=== PATIENT | female | born 1995 | race African-American/Black ===

== ENCOUNTER 2021-06-10 05:02 | Emergency (ER) | payer OTHER ==
--- NOTE | 2021-06-10 08:14 | REP ---
INDICATION: vaginal bleeding started this am COMPARISON: None. TECHNIQUE: Transabdominal 1st trimester obstetrical ultrasound with color Doppler evaluation. FINDINGS: Single live early intrauterine is appreciated. Gestational sac with pole identified. [place]-rump length of 61 mm corresponds to 12 weeks 4 days gestational age with estimated date of delivery 12/19/2021. heart rate equals 150 beats per minute. No gross abnormalities are identified. IMPRESSION: Single live early intrauterine at 12 weeks 4 days gestational age. Complete anatomical assessment should be performed and 19-20 weeks. <Electronically signed by Siddharth Acevedo > 06/10/21 [id number]
[2021-06-10 08:16] LABS: BASO % 0.3 % (0.0-1.0); EOS % 0.3 % (0.0-3.0); HEMATOCRIT 37.4 % (36.0-47.0); HEMOGLOBIN 12.5 g/dl (12.0-15.5); LYMPH # 1.6 10^3/uL (1.5-5.0); LYMPH % 23.9 % (24.0-44.0); MEAN CORPUSCULAR HEMOGLOBIN 29.2 pg (27.0-33.0); MEAN CORPUSCULAR HGB CONC 33.4 g/dl (32.0-36.5); MEAN CORPUSCULAR VOLUME 87.4 fl (80.0-96.0); MONO # 0.4 10^3/uL (0.0-0.8); MONO % 5.8 % (2.0-8.0); NEUTROPHILS # 4.7 10^3/uL (1.5-8.5); NEUTROPHILS % 69.3 % (36.0-66.0); PLATELET COUNT, AUTOMATED 288 10^3/uL (150-450); RED BLOOD COUNT 4.28 10^6/uL (4.00-5.40); WHITE BLOOD COUNT 6.8 10^3/uL (4.0-10.0)
[2021-06-10] MEDS ORDERED: ACETAMINOPHEN 325 MG TAB PO ONE (08:20)
[2021-06-10 09:17] VITALS: BP 109/60
== END 2021-06-10 09:33 | disposition home or self-care (01) ==
LOC: M ED 05:02
DX: O20.8 Other hemorrhage in early pregnancy (principal); O26.891 Other specified pregnancy related conditions, first trimester; Z3A.12 12 weeks gestation of pregnancy

== ENCOUNTER 2021-11-19 16:08 | Outpatient (CLI) | payer OTHER ==
[2021-11-19 16:56] VITALS: BP 127/71
[2021-11-19 17:18] VITALS: BP 107/55
[2021-11-19] MEDS ORDERED: FLUCONAZOLE 50MG TABLET PO ONE (17:30)
[2021-11-19] MEDS ORDERED: PRENTAB9 PO (17:31)
[2021-11-19] MEDS ORDERED: FERR325T3 PO (17:32)
== END 2021-11-19 17:37 | disposition home or self-care (01) ==
LOC: M LDO 16:08
PROVIDERS: ATTEND Obstetrics & Gynecology
DX: O23.593 Infection of other part of genital tract in pregnancy, third trimester (principal); Z3A.35 35 weeks gestation of pregnancy
CPT/HCPCS: 59025; 76815; G0463

== ENCOUNTER 2021-12-29 14:05 | Inpatient (IN) | payer OTHER ==
[~2021-12-29] VITALS: Ht 167.6 cm; Wt 84.4 kg
[~2021-12-29 14:05] MED LIST: FERR325T3 PO; PRENTAB9 PO
[2021-12-29 14:10] VITALS: BP 138/82
[2021-12-29] MEDS ORDERED: TRANEXAMIC ACID INJection 1,000 MG in NS 100 ML IV PRN (14:15)
[2021-12-29] MEDS ORDERED: OXYTOCIN INJ 10 UNITS/ML VIAL (J2590) IV PRN (14:15)
[2021-12-29] MEDS ORDERED: METHYLERGONOVINE MALEATE 0.2 MG/ML VIAL (J2210) IM PRN (14:15)
[2021-12-29] MEDS ORDERED: LACTATED RINGER'S 1000 ML IV ONE (14:15)
[2021-12-29] MEDS ORDERED: OXYTOCIN DRIP 30 UNITS in IV 1 EA IV PRN ×4 (14:15)
[2021-12-29] MEDS ORDERED: BICITRA 30ML SOLN UDC PO ONE (14:20)
[2021-12-29] MEDS ORDERED: ACETAMINOPHEN 650 MG SUPP PR ONE (14:20)
[2021-12-29] MEDS ORDERED: ceFAZolin SOD 2 GM in IV 1 EA IV ONE (14:20)
[2021-12-29] MEDS ORDERED: AZITHROMYCIN INJ 500 MG, VIAL MATE ADAPTER 1 EACH in NS 250 ML IV ONE (14:20)
[2021-12-29] MEDS ORDERED: BUPIVACAINE HCL 0.25% 10ML VIAL SC ONE (14:20)
[2021-12-29 15:41] LABS: HEMATOCRIT 34.7 % (36.0-47.0); HEMOGLOBIN 11.8 g/dl (12.0-15.5); MEAN CORPUSCULAR VOLUME 91.1 fl (80.0-96.0); PLATELET COUNT, AUTOMATED 200 10^3/uL (150-450); RED BLOOD COUNT 3.81 10^6/uL (4.00-5.40); WHITE BLOOD COUNT 9.2 10^3/uL (4.0-10.0)
[2021-12-29] MEDS: LR 1,000 ML IV SCH ×2 (15:59→22:15)
[2021-12-29] MEDS ORDERED: MORPHINE PRES-FREE INJ 10 MG/10 ML VIAL As Ordered ONE (19:27)
[2021-12-29] MEDS ORDERED: METOCLOPRAMIDE INJ 10MG/2ML VIAL (J2765 PER 1) As Ordered ONE (19:28)
[2021-12-29] MEDS ORDERED: KETOROLAC 60MG 2ML VIAL As Ordered ONE (19:28)
[2021-12-29] MEDS ORDERED: ONDANSETRON 4MG/2ML VIAL As Ordered ONE (19:28)
[2021-12-29] MEDS ORDERED: dexameTHASONE 4 MG/ML 1ML VIAL (J1100 PER 1MG) As Ordered ONE (19:28)
[2021-12-29] MEDS ORDERED: OXYTOCIN INJ 10 UNITS/ML VIAL (J2590) As Ordered ONE (19:31)
[2021-12-29] MEDS ORDERED: OXYTOCIN 30 UNITS IN 0.9% NaCl 500ML IV BAG (J2590) As Ordered ONE ×2 (19:35→21:34)
[2021-12-29] MEDS ORDERED: ACETAMINOPHEN 1000MG 100ML IV BTL (OFIRMEV) (J0131 PER 10MG) As Ordered ONE (19:37)
[2021-12-29] MEDS ORDERED: PHENYLephrine 500MCG 5ML (100MCG/ML) SYRINGE As Ordered ONE (20:17)
[2021-12-29] MEDS ORDERED: ePHEDrine SULFATE 25 MG/5 ML(5MG/ML) SYRINGE As Ordered ONE (20:17)
[2021-12-29] MEDS ORDERED: fentaNYL 100 MCG/2 ML INJECTION As Ordered ONE (20:23)
[2021-12-29 20:29] LABS: CORD GAS ABE A -0.6; CORD GAS ABE V -0.5; CORD GAS HCO3 A 25.9 MEQ/L; CORD GAS HCO3 V 23.6 MEQ/L; CORD GAS O2 SAT A 38.4 %; CORD GAS PCO2 A 49.5 mmHg; CORD GAS PCO2 V 37.4 mmHg; CORD GAS PH A 7.336 UNITS; CORD GAS PH V 7.418 UNITS; CORD GAS PO2 A 18.5 mmHg; CORD GAS PO2 V 23.1 mmHg; CORD GAS SBC A 22.6 MEQ/L; CORD GAS TCO2 A 27.4 MEQ/L; CORD GAS TCO2 V 24.8 MEQ/L
[2021-12-29] MEDS ORDERED: MEPERIDINE 50 MG/ML 1ML VIAL (J2175) As Ordered ONE (20:34)
[2021-12-29] MEDS ORDERED: OXYTOCIN DRIP 30 UNITS in IV 1 EA IV ONE (21:30)
[2021-12-29] MEDS ORDERED: MOM 30ML SUSPENSION UDC PO PRN (21:30)
[2021-12-29] MEDS ORDERED: LR 1,000 ML IV SCH (21:30)
[2021-12-29] MEDS ORDERED: OXYTOCIN INJ 10 UNITS/ML VIAL (J2590) IV ONE (21:30)
[2021-12-29] MEDS ORDERED: ANUSOL HC CREAM 30GM TOP PRN (21:30)
[2021-12-29] MEDS ORDERED: ACETAMINOPHEN TAB 650MG DOSE (2X325MG) PO PRN (21:30)
[2021-12-29] MEDS ORDERED: MEASLES,MUMPS,RUBELLA VACCINE INJ (MMR-II) (90707) SC SCH (21:30)
[2021-12-29] MEDS ORDERED: DOCUSATE SODIUM 100MG CAPSULE PO PRN (21:30)
[2021-12-29] MEDS ORDERED: SIMETHICONE 80MG CHEW TAB PO PRN (21:30)
[2021-12-29] MEDS ORDERED: RHOGAM 300 MCG (1500 IU) INJ (J2790) IM SCH (21:30)
[2021-12-29] MEDS ORDERED: PERCOCET 5MG/325MG TAB PO PRN ×2 (21:30)
[2021-12-29] MEDS ORDERED: METHYLERGONOVINE MALEATE 0.2 MG TAB PO PRN (21:30)
[2021-12-29] MEDS ORDERED: ACETAMINOPHEN 500 MG TAB PO PRN (21:30)
[2021-12-29 22:30] VITALS: BP 131/82
[2021-12-29 23:00] VITALS: BP 133/74
[2021-12-29 23:30] VITALS: BP 125/73
[2021-12-30] VITALS (7 sets, daily range): BP systolic 100–128; BP diastolic 55–79
[2021-12-30] MEDS: KETOROLAC 30 MG/ML 1ML VIAL IV SCH ×3 (02:05→14:23)
[2021-12-30] MEDS ORDERED: diphenhydrAMINE 50MG/ML VIAL (J1200) IV PRN (02:10)
[2021-12-30] MEDS: LR 1,000 ML IV SCH (05:58)
[2021-12-30 07:10] LABS: HEMATOCRIT 32.7 % (36.0-47.0); HEMOGLOBIN 10.9 g/dl (12.0-15.5); MEAN CORPUSCULAR HEMOGLOBIN 30.2 pg (27.0-33.0); MEAN CORPUSCULAR HGB CONC 33.3 g/dl (32.0-36.5); MEAN CORPUSCULAR VOLUME 90.6 fl (80.0-96.0); PLATELET COUNT, AUTOMATED 221 10^3/uL (150-450); RED BLOOD COUNT 3.61 10^6/uL (4.00-5.40)
[2021-12-30] MEDS: PRENATAL VITAMINS CHEWABLE TABLET PO SCH (08:27)
[2021-12-30] MEDS ORDERED: IBUPROFEN 800 MG TAB PO PRN (22:00)
[2021-12-30] MEDS ORDERED: IBUPROFEN 600MG TAB PO PRN (22:00)
[2021-12-31 02:00] VITALS: BP 106/67
[2021-12-31 06:00] VITALS: BP 121/71
[2021-12-31] MEDS ORDERED: IBUP80TA PO (08:13)
[2021-12-31] MEDS ORDERED: COLA100C5 PO (08:13)
[2021-12-31] MEDS ORDERED: ACET-683 PO (08:13)
[2021-12-31] MEDS ORDERED: PERCOCET PO (08:13)
[2021-12-31] MEDS: PRENATAL VITAMINS CHEWABLE TABLET PO SCH (09:06)
[2021-12-31 09:52] VITALS: BP 121/66
== END 2021-12-31 17:46 | disposition home or self-care (01) | DRG 773 ==
LOC: M LDI 14:05 → M OBS 22:36
PROVIDERS: ADMIT Obstetrics & Gynecology; ATTEND Obstetrics & Gynecology
PROC: 10D00Z1 Extraction of Products of Conception, Low, Open Approach (ICD-10-PCS; principal; 2021-12-29 18:00)
DX: O34.211 Maternal care for low transverse scar from previous cesarean delivery (principal); O48.0 Post-term pregnancy; Z3A.41 41 weeks gestation of pregnancy; O76 Abnormality in fetal heart rate and rhythm complicating labor and delivery; Z37.0 Single live birth; O69.81X0 Labor and delivery complicated by cord around neck, without compression, not applicable or unspecified; O40.3XX0 Polyhydramnios, third trimester, not applicable or unspecified

== ENCOUNTER 2022-03-16 18:50 | Emergency (ER) | payer OTHER ==
[~2022-03-16] VITALS: Ht 167.6 cm; Wt 79.1 kg
[~2022-03-16 18:50] MED LIST changes: +ACET-683 PO; +COLA100C5 PO; +IBUP80TA PO; +PERCOCET PO
[2022-03-16 21:08] LABS: BASO % 0.3 % (0.0-1.0); EOS # 0.1 10^3/uL (0.0-0.5); EOS % 1.4 % (0.0-3.0); HEMATOCRIT 42.2 % (36.0-47.0); HEMOGLOBIN 13.6 g/dl (12.0-15.5); LYMPH # 2.1 10^3/uL (1.5-5.0); LYMPH % 36.9 % (24.0-44.0); MEAN CORPUSCULAR HEMOGLOBIN 28.9 pg (27.0-33.0); MEAN CORPUSCULAR HGB CONC 32.2 g/dl (32.0-36.5); MEAN CORPUSCULAR VOLUME 89.6 fl (80.0-96.0); MONO # 0.4 10^3/uL (0.0-0.8); MONO % 7.3 % (2.0-8.0); NEUTROPHILS # 3.1 10^3/uL (1.5-8.5); NEUTROPHILS % 53.9 % (36.0-66.0); PLATELET COUNT, AUTOMATED 282 10^3/uL (150-450); RED BLOOD COUNT 4.71 10^6/uL (4.00-5.40); WHITE BLOOD COUNT 5.7 10^3/uL (4.0-10.0)
[2022-03-16 21:33] LABS: HCG, SERUM QUALITATIVE NEGATIVE (NEGATIVE)
[2022-03-16 21:40] LABS: ALT/SGPT 85 U/L (12-78); BILIRUBIN,DIRECT < 0.1 MG/DL (0.0-0.2); BILIRUBIN,TOTAL 0.4 MG/DL (0.2-1.0); BLOOD UREA NITROGEN 9 MG/DL (7-18); CALCIUM LEVEL 9.7 MG/DL (8.5-10.1); CARBON DIOXIDE LEVEL 26 MEQ/L (21-32); CHLORIDE LEVEL 108 MEQ/L (98-107); CREATININE FOR GFR 0.75 MG/DL (0.55-1.30); GLOMERULAR FILTRATION RATE > 60.0 (>60); GLUCOSE, FASTING 75 MG/DL (70-100); LIPASE 137 U/L (73-393); SODIUM LEVEL 141 MEQ/L (136-145); TOTAL PROTEIN 8.1 GM/DL (6.4-8.2)
[2022-03-16] MEDS ORDERED: KETOROLAC 30 MG/ML 1ML VIAL IV ONE (23:50)
[2022-03-16] MEDS ORDERED: NS 1,000 ML IV ONE (23:50)
[2022-03-17] MEDS ORDERED: PROT1TAB2 PO ×2 (02:18→02:20)
[2022-03-17 02:30] VITALS: BP 119/75
== END 2022-03-17 02:32 | disposition home or self-care (01) ==
LOC: M ED 18:50
DX: S10.15XA Superficial foreign body of throat, initial encounter (principal); Y92.511 Restaurant or cafe as the place of occurrence of the external cause
CPT/HCPCS: 74018; 80048; 80076; 81001; 83690; 84703; 85025; 93005; 96374; 99284; J1885

== ENCOUNTER 2022-07-12 19:34 | Emergency (ER) | payer OTHER ==
[~2022-07-12] VITALS: Ht 162.6 cm; Wt 77.7 kg
[~2022-07-12 19:34] MED LIST changes: +PROT1TAB2 PO
[2022-07-12] MEDS ORDERED: ACETAMINOPHEN 500 MG TAB PO ONE (21:30)
[2022-07-12 21:55] LABS: BASO % 0.3 % (0.0-1.0); EOS # 0.1 10^3/uL (0.0-0.5); EOS % 1.1 % (0.0-3.0); HEMATOCRIT 37.6 % (36.0-47.0); HEMOGLOBIN 12.3 g/dl (12.0-15.5); LYMPH # 2.8 10^3/uL (1.5-5.0); LYMPH % 43.1 % (24.0-44.0); MEAN CORPUSCULAR HEMOGLOBIN 28.7 pg (27.0-33.0); MEAN CORPUSCULAR HGB CONC 32.7 g/dl (32.0-36.5); MEAN CORPUSCULAR VOLUME 87.9 fl (80.0-96.0); MONO # 0.5 10^3/uL (0.0-0.8); MONO % 7.2 % (2.0-8.0); NEUTROPHILS # 3.2 10^3/uL (1.5-8.5); NEUTROPHILS % 48.1 % (36.0-66.0); PLATELET COUNT, AUTOMATED 267 10^3/uL (150-450); RED BLOOD COUNT 4.28 10^6/uL (4.00-5.40); WHITE BLOOD COUNT 6.6 10^3/uL (4.0-10.0)
[2022-07-12 22:29] LABS: ALBUMIN 3.8 GM/DL (3.2-5.2); ALT/SGPT 32 U/L (12-78); BILIRUBIN,DIRECT 0.1 MG/DL (0.0-0.2); BILIRUBIN,TOTAL 0.6 MG/DL (0.2-1.0); BLOOD UREA NITROGEN 12 MG/DL (7-18); CALCIUM LEVEL 9.3 MG/DL (8.5-10.1); CARBON DIOXIDE LEVEL 27 MEQ/L (21-32); CHLORIDE LEVEL 105 MEQ/L (98-107); CREATININE FOR GFR 0.82 MG/DL (0.55-1.30); GLOMERULAR FILTRATION RATE > 60.0 (>60); GLUCOSE, FASTING 89 MG/DL (70-100); LIPASE 168 U/L (73-393); POTASSIUM SERUM 4.2 MEQ/L (3.5-5.1); SODIUM LEVEL 136 MEQ/L (136-145); TOTAL PROTEIN 7.5 GM/DL (6.4-8.2)
[2022-07-13 00:19] VITALS: BP 124/67
== END 2022-07-13 00:28 | disposition home or self-care (01) ==
LOC: M ED 19:34
DX: O34.81 Maternal care for other abnormalities of pelvic organs, first trimester (principal); N83.292 Other ovarian cyst, left side; Z3A.01 Less than 8 weeks gestation of pregnancy; O34.219 Maternal care for unspecified type scar from previous cesarean delivery; Z79.899 Other long term (current) drug therapy; Z87.19 Personal history of other diseases of the digestive system

== ENCOUNTER → 2022-07-30 | Outpatient (CLI) | payer OTHER | LOC: M RAD 10:11 | PROVIDERS: ATTEND Registered Nurse | DX: O36.80X0 Pregnancy with inconclusive fetal viability, not applicable or unspecified (principal); N83.202 Unspecified ovarian cyst, left side; Z3A.01 Less than 8 weeks gestation of pregnancy; O34.81 Maternal care for other abnormalities of pelvic organs, first trimester ==

== ENCOUNTER → 2022-08-01 | Outpatient (CLI) | payer OTHER | LOC: M LAB 16:36 | PROVIDERS: ATTEND Registered Nurse | DX: O36.80X0 Pregnancy with inconclusive fetal viability, not applicable or unspecified (principal); Z3A.00 Weeks of gestation of pregnancy not specified ==

== ENCOUNTER 2022-10-19 08:22 | Emergency (ER) | payer OTHER ==
[~2022-10-19] VITALS: Ht 167.6 cm; Wt 79.1 kg
[2022-10-19 09:14] LABS: BASO % 0.2 % (0.0-1.0); EOS # 0.1 10^3/uL (0.0-0.5); EOS % 0.6 % (0.0-3.0); HEMATOCRIT 34.9 % (36.0-47.0); HEMOGLOBIN 11.8 g/dl (12.0-15.5); LYMPH # 2.1 10^3/uL (1.5-5.0); LYMPH % 25.1 % (24.0-44.0); MEAN CORPUSCULAR HEMOGLOBIN 29.8 pg (27.0-33.0); MEAN CORPUSCULAR HGB CONC 33.8 g/dl (32.0-36.5); MEAN CORPUSCULAR VOLUME 88.1 fl (80.0-96.0); MONO # 0.4 10^3/uL (0.0-0.8); MONO % 5.4 % (2.0-8.0); NEUTROPHILS # 5.6 10^3/uL (1.5-8.5); NEUTROPHILS % 68.2 % (36.0-66.0); PLATELET COUNT, AUTOMATED 241 10^3/uL (150-450); RED BLOOD COUNT 3.96 10^6/uL (4.00-5.40); WHITE BLOOD COUNT 8.2 10^3/uL (4.0-10.0)
[2022-10-19 09:15] LABS: APPEARANCE, URINE CLEAR (CLEAR); BILIRUBIN, URINE AUTO NEGATIVE (NEGATIVE); BLOOD, URINE BLOOD NEGATIVE (NEGATIVE); COLOR, URINE STRAW (YELLOW); GLUCOSE, URINE (UA) AUTO NEGATIVE (NEGATIVE); KETONE, URINE AUTO NEGATIVE (NEGATIVE); LEUKOCYTE ESTERASE, URINE AUTO NEGATIVE (NEGATIVE); NITRITE, URINE AUTO NEGATIVE (NEGATIVE); PROTEIN, URINE AUTO NEGATIVE (NEGATIVE); SPECIFIC GRAVITY URINE AUTO 1.002 (1.002-1.035); UROBILINOGEN, URINE AUTO 0.2 mg/dL (0.0-2.0)
[2022-10-19 09:16] LABS: BACTERIA, URINE AUTO NEGATIVE (NEGATIVE); RBC, URINE AUTO 0 /HPF (0-3); SQUAMOUS EPITHELIAL CELL UR AU 1 /HPF (0-6); WBC, URINE AUTO 0 /HPF (0-3)
[2022-10-19 11:19] VITALS: BP 107/61
== END 2022-10-19 11:30 | disposition home or self-care (01) ==
LOC: M ED 08:22
DX: O26.92 Pregnancy related conditions, unspecified, second trimester (principal); Z3A.18 18 weeks gestation of pregnancy

== ENCOUNTER 2023-03-13 05:11 | Inpatient (IN) | payer OTHER ==
[~2023-03-13] VITALS: Ht 152.4 cm; Wt 88.6 kg
[2023-03-13] VITALS (11 sets, daily range): BP systolic 112–144; BP diastolic 71–93; TEMP 98.4; O2SAT 99–100
[2023-03-13] MEDS ORDERED: LACTATED RINGER'S 1000 ML IV STA (05:29)
[2023-03-13] MEDS ORDERED: BICITRA 30ML SOLN UDC PO ONE (06:00)
[2023-03-13] MEDS ORDERED: ceFAZolin SOD 2 GM in IV 1 EA IV ONE (06:00)
[2023-03-13 06:14] LABS: HEMATOCRIT 34.5 % (36.0-47.0); HEMOGLOBIN 11.2 g/dl (12.0-15.5); MEAN CORPUSCULAR HGB CONC 32.5 g/dl (32.0-36.5); MEAN CORPUSCULAR VOLUME 89.4 fl (80.0-96.0); PLATELET COUNT, AUTOMATED 181 10^3/uL (150-450); RED BLOOD COUNT 3.86 10^6/uL (4.00-5.40); WHITE BLOOD COUNT 8.2 10^3/uL (4.0-10.0)
[2023-03-13] MEDS: LR 1,000 ML IV SCH ×3 (06:18→20:48)
[2023-03-13] MEDS ORDERED: OXYTOCIN INJ 10UNITS/ML 1ML VIAL As Ordered ONE ×2 (07:27→08:44)
[2023-03-13] MEDS ORDERED: KETOROLAC 60MG 2ML VIAL As Ordered ONE (07:27)
[2023-03-13] MEDS ORDERED: MORPHINE PRES-FREE INJ 10 MG/10 ML VIAL As Ordered ONE (07:27)
[2023-03-13] MEDS ORDERED: ONDANSETRON 4MG 2ML VIAL As Ordered ONE (08:01)
[2023-03-13] MEDS ORDERED: PHENYLephrine 500MCG 5ML (100MCG/ML) SYRINGE As Ordered ONE (08:45)
[2023-03-13] MEDS ORDERED: NALOXONE INJ 0.4MG/1ML VIAL IV PRN ×2 (08:55)
[2023-03-13] MEDS ORDERED: ONDANSETRON 4MG 2ML VIAL IV PRN (08:55)
[2023-03-13] MEDS ORDERED: fentaNYL 100 MCG/2 ML INJECTION IV PRN (08:55)
[2023-03-13] MEDS ORDERED: oxyCODONE 5MG TAB PO PRN (08:55)
[2023-03-13] MEDS ORDERED: **NOTE PATIENT COMMENT** MISC XX SCH (08:55)
[2023-03-13] MEDS ORDERED: LR 1,000 ML IV SCH (08:55)
[2023-03-13] MEDS ORDERED: METOCLOPRAMIDE INJ 10MG/2ML VIAL IV PRN ×2 (08:55)
[2023-03-13] MEDS ORDERED: RHOGAM 300MCG (1500IU) INJ IM SCH (09:00)
[2023-03-13] MEDS ORDERED: MOM 30ML SUSPENSION UDC PO PRN (09:00)
[2023-03-13] MEDS: diphenhydrAMINE 50MG/ML VIAL IV PRN ×2 (09:20→17:43)
[2023-03-13] MEDS ORDERED: diphenhydrAMINE 50MG/ML VIAL As Ordered ONE (09:20)
[2023-03-13] MEDS ORDERED: OXYTOCIN DRIP 30 UNITS in IV 1 EA IV ONE (09:50)
[2023-03-13] MEDS ORDERED: OXYTOCIN 30UNITS IN 0.9% NaCl 500ML IV BAG As Ordered ONE (09:51)
[2023-03-13] MEDS ORDERED: MORPHINE 10 MG/ML 1ML VIAL As Ordered ONE (10:23)
[2023-03-13] MEDS ORDERED: MORPHINE 4 MG/ML 1ML VIAL IV ONE (10:25)
[2023-03-13] MEDS ORDERED: TRANEXAMIC ACID INJection 1,000 MG in D5W 100 ML IV ONE (10:30)
[2023-03-13] MEDS ORDERED: CARBOPROST TROMETHAMINE 250 MCG/ML AMP IM ONE (10:35)
[2023-03-13] MEDS ORDERED: LOPERAMIDE 2 MG CAPLET PO PRN (11:05)
[2023-03-13 11:33] LABS: HEMATOCRIT 32.2 % (36.0-47.0); HEMOGLOBIN 10.3 g/dl (12.0-15.5); MEAN CORPUSCULAR HEMOGLOBIN 29.3 pg (27.0-33.0); MEAN CORPUSCULAR VOLUME 91.7 fl (80.0-96.0); PLATELET COUNT, AUTOMATED 194 10^3/uL (150-450); RED BLOOD COUNT 3.51 10^6/uL (4.00-5.40); WHITE BLOOD COUNT 13.7 10^3/uL (4.0-10.0)
[2023-03-13] MEDS: PRENATAL VITAMINS CHEWABLE TABLET PO SCH (11:59)
[2023-03-13] MEDS: DOCUSATE SODIUM 100MG CAPSULE PO SCH ×2 (11:59→20:48)
[2023-03-13] MEDS: SLF 3 ML SYR IV SCH ×3 (12:40→23:32)
[2023-03-13] MEDS: oxyCODONE 5MG TAB PO PRN (14:08)
[2023-03-13] MEDS: KETOROLAC 30 MG/ML 1ML VIAL IV SCH ×2 (14:49→20:48)
[2023-03-13] MEDS: ceFAZolin SOD 2 GM in IV 1 EA IV SCH ×2 (16:23→23:31)
[2023-03-13 16:52] LABS: HEMATOCRIT 30.5 % (36.0-47.0); HEMOGLOBIN 9.6 g/dl (12.0-15.5); MEAN CORPUSCULAR HEMOGLOBIN 29.1 pg (27.0-33.0); MEAN CORPUSCULAR HGB CONC 31.5 g/dl (32.0-36.5); MEAN CORPUSCULAR VOLUME 92.4 fl (80.0-96.0); PLATELET COUNT, AUTOMATED 152 10^3/uL (150-450); WHITE BLOOD COUNT 13.6 10^3/uL (4.0-10.0)
[2023-03-14] MEDS: ACETAMINOPHEN 500 MG TAB PO PRN ×3 (01:18→16:46)
[2023-03-14 02:00] VITALS: BP 128/74; O2SAT 100
[2023-03-14] MEDS: KETOROLAC 30 MG/ML 1ML VIAL IV SCH (03:16)
[2023-03-14] MEDS: LR 1,000 ML IV SCH ×2 (04:05→13:30)
[2023-03-14 05:45] LABS: HEMATOCRIT 24.1 % (36.0-47.0); HEMOGLOBIN 7.8 g/dl (12.0-15.5); MEAN CORPUSCULAR HGB CONC 32.4 g/dl (32.0-36.5); MEAN CORPUSCULAR VOLUME 92.7 fl (80.0-96.0); PLATELET COUNT, AUTOMATED 145 10^3/uL (150-450); WHITE BLOOD COUNT 8.9 10^3/uL (4.0-10.0)
[2023-03-14 06:00] VITALS: BP 113/67; O2SAT 100
[2023-03-14] MEDS: ceFAZolin SOD 2 GM in IV 1 EA IV SCH ×2 (06:39→15:45)
[2023-03-14] MEDS: DOCUSATE SODIUM 100MG CAPSULE PO SCH ×2 (08:25→21:25)
[2023-03-14] MEDS: PRENATAL VITAMINS CHEWABLE TABLET PO SCH (08:26)
[2023-03-14] MEDS: FERROUS SULFATE 325MG TAB PO SCH ×2 (08:26→21:25)
[2023-03-14] MEDS: SIMETHICONE 80MG CHEW TAB PO PRN ×2 (08:27→16:47)
[2023-03-14] MEDS: oxyCODONE 5MG TAB PO PRN ×2 (08:30→16:46)
[2023-03-14 10:00] VITALS: BP 156/73; O2SAT 100
[2023-03-14] MEDS: IBUPROFEN 800 MG TAB PO SCH ×2 (11:46→19:32)
[2023-03-14] MEDS ORDERED: diphenhydrAMINE 50MG/ML VIAL IV PRN (13:45)
[2023-03-14 14:00] VITALS: BP 129/74; O2SAT 100
[2023-03-14 18:00] VITALS: BP 125/81; O2SAT 100
[2023-03-14 22:00] VITALS: BP 141/65; O2SAT 100
[2023-03-15 02:00] VITALS: O2SAT 100
[2023-03-15] MEDS: IBUPROFEN 800 MG TAB PO SCH ×4 (03:26→19:27)
[2023-03-15 06:00] VITALS: BP 129/58; O2SAT 100
[2023-03-15 09:00] VITALS: BP 137/95; O2SAT 97
[2023-03-15] MEDS ORDERED: MEASLES,MUMPS,RUBELLA VACCINE INJ (MMR-II) SC.IMMUN ONE (09:00)
[2023-03-15] MEDS: DOCUSATE SODIUM 100MG CAPSULE PO SCH ×2 (09:41→21:25)
[2023-03-15] MEDS: FERROUS SULFATE 325MG TAB PO SCH ×2 (09:41→21:25)
[2023-03-15] MEDS: PRENATAL VITAMINS CHEWABLE TABLET PO SCH (09:41)
[2023-03-15] MEDS: oxyCODONE 5MG TAB PO PRN (09:41)
[2023-03-15 18:00] VITALS: BP 124/78; O2SAT 97
[2023-03-15] MEDS: ACETAMINOPHEN 500 MG TAB PO PRN (21:25)
[2023-03-15 22:00] VITALS: BP 150/95; O2SAT 100
[2023-03-15 22:53] VITALS: BP 126/82; O2SAT 100
[2023-03-16 02:00] VITALS: BP 133/86; O2SAT 100
[2023-03-16] MEDS: IBUPROFEN 800 MG TAB PO SCH ×2 (03:31→12:45)
[2023-03-16] MEDS: ACETAMINOPHEN 500 MG TAB PO PRN (04:14)
[2023-03-16 06:00] VITALS: BP 127/82; O2SAT 98
[2023-03-16] MEDS: PRENATAL VITAMINS CHEWABLE TABLET PO SCH (09:36)
[2023-03-16] MEDS: DOCUSATE SODIUM 100MG CAPSULE PO SCH (09:36)
[2023-03-16] MEDS: FERROUS SULFATE 325MG TAB PO SCH (09:36)
== END 2023-03-16 13:42 | disposition home or self-care (01) | DRG 772 ==
LOC: M LDI 05:11 → M OBS 11:37
PROVIDERS: ADMIT Obstetrics & Gynecology; ATTEND Obstetrics & Gynecology
PROC: 10D00Z1 Extraction of Products of Conception, Low, Open Approach (ICD-10-PCS; principal; 2023-03-13 07:30)
DX: O34.211 Maternal care for low transverse scar from previous cesarean delivery (principal); O72.0 Third-stage hemorrhage; Z3A.40 40 weeks gestation of pregnancy; Z37.0 Single live birth; O34.593 Maternal care for other abnormalities of gravid uterus, third trimester